=== PATIENT | male | born 1995 | race Caucasian/White ===

== ENCOUNTER 2017-10-13 15:16 | Emergency (ER) | payer OTHER ==
--- NOTE | 2017-10-13 16:20 | RAD ---
HISTORY: Right thumb pain, trauma COMPARISONS: None VIEWS: 3, Frontal, lateral, and oblique views of the first digit of the right hand FINDINGS: BONE DENSITY: Normal. BONES: On one projection, there is a linear lucency along the radial aspect of the base of the distal phalanx of the first digit JOINTS: There is no arthropathy. ALIGNMENT: There is no dislocation. SOFT TISSUES: Unremarkable. OTHER FINDINGS: None. IMPRESSION: QUESTIONABLE NONDISPLACED FRACTURE OF THE BASE OF THE DISTAL PHALANX OF THE FIRST DIGIT. RECOMMEND CORRELATION WITH SITE OF PAIN.
[2017-10-13] MEDS ORDERED: Ibuprofen TAB* 600 MG PO ONE (16:24)
--- NOTE | 2017-10-13 16:25 | ED ---
Upper Extremity Pain - HPI Summary HPI Summary: 22 male presents to ED with complaints of "I think I re-broke my thumb playing basketball". Patient states he broke it a few months ago, back in june 2017, had a cast and states it took a while to heal. Had cast removed in July has since been ok. Was playing basketball yesterday when he re-hurt/jammed his right thumb. Has since been having pain in the same area as when he previously fractured it. Patient denies any obvious swelling or bruising. States pain is worse with movement. No medication. No PMHx. No other complaints or injuries/ tenderness. Is right hand dominant. - History of Current Complaint Chief Complaint: EDExtremityUpper Stated Complaint: THUMB INJURY Time Seen by Provider: 10/13/17 15:29 Hx Obtained From: Patient Mechanism Of Injury: Twisted Onset/Duration: Started Days Ago - yesterday, Traumatic, Still Present, Worse Since Timing: Constant Severity Initially: Mild Severity Currently: Moderate Pain Location: Finger - right thumb Character: Sharp, Aching Aggravating Factor(s): Movement Alleviating Factor(s): Rest Associated Signs & Symptoms: Positive: Negative Related History: Dominant Hand Right - Allergies/Home Medications Allergies/Adverse Reactions: Allergies Allergy/AdvReac Type Severity Reaction Status Date / Time No Known Allergies Allergy Verified 10/13/17 16:21 PMH/Surg Hx/FS Hx/Imm Hx Endocrine/Hematology History: Denies: Hx Anticoagulant Therapy Cardiovascular History: Denies: Hx Hypertension Respiratory History: Denies: Hx Asthma - Surgical History Surgery Procedure, Year, and Place: n/a - Immunization History Immunizations Up to Date: Yes Infectious Disease History: No Infectious Disease History: Denies: Traveled Outside the [place] in Last 30 Days - Family History Known Family History: Positive: None - Social History Alcohol Use: Occasionally Substance Use Type: Reports: None Smoking Status (MU): Never Smoked Tobacco Review of Systems Constitutional: Negative Cardiovascular: Negative Respiratory: Negative Positive: Arthralgia, Myalgia, Decreased ROM - right thumb Skin: Negative Neurological: Negative All Other Systems Reviewed And Are Negative: Yes Physical Exam Triage Information Reviewed: Yes Vital Signs On Initial Exam: Initial Vitals Temp Pulse Resp BP Pulse Ox 97.9 F 59 18 114/80 100 10/13/17 15:18 02/06/18 15:18 10/13/17 15:18 10/13/17 15:18 10/13/17 15:18 Vital Signs Reviewed: Yes Appearance: Positive: Well-Appearing, No Pain Distress, Well-Nourished Skin: Positive: Warm, Skin Color Reflects Adequate Perfusion, Dry. Negative: Cold, Numb, Cyanosis @, Pale, Erythema @ Eyes: Positive: Normal Respiratory/Lung Sounds: Positive: Clear to Auscultation, Breath Sounds Present. Negative: Rales, Rhonchi, Wheezes Cardiovascular: Positive: Normal, RRR, Pulses are Symmetrical in both Upper and Lower Extremities - 2+ radial b/l. Negative: Murmur, Rub Bowel Sounds: Positive: Present Musculoskeletal: Positive: Normal, Limited @ - right thumb with movement due to pain, Pain @ - right thumb at PIP joint and DIP joint, Other - no swelling, edema or obvious deformity noted, no crepitus or step off appreciated. rest of MSK and right hand/fingers exam normal. Negative: Interruption @, Edema Left, Edema Right Neurological: Positive: Normal, Sensory/Motor Intact, Alert, Oriented to Person Place, Time, NV Bundle Intact Distally Diagnostics - Vital Signs Vital Signs Temp Pulse Resp BP Pulse Ox 10/13/17 15:18 97.9 F 59 18 114/80 100 - Laboratory Lab Statement: Any lab studies that have been ordered have been reviewed, and results considered in the medical decision making process. - Radiology right thumb Xray Interpretation: Positive (See Comments) - QUESTIONABLE NONDISPLACED FRACTURE OF THE BASE OF THE DISTAL PHALANX OF THE FIRST DIGIT. RECOMMEND CORRELATION WITH SITE OF PAIN. Radiology Interpretation Completed By: Radiologist Course/Dx - Course Course Of Treatment: given ibuprofen. xray obtained and showed questionable fracture at base of distal phalanx, at point of some pain on palpation on physical exam. patient did have previous fracture in same thumb. will treat as fracture, follow up with ortho. splint and RICE, NSAIDs. patient agrees and understands plan. re-imaging may be necessary. aware of worsening signs and symptoms to watch out for. patient educated that hairline fractures may be difficult to see shortly after injury. - Diagnoses Differential Diagnosis/HQI/PQRI: Positive: Contusion, Fracture (Closed), Strain , Sprain Provider Diagnoses: Fracture of thumb, right, closed Discharge - Discharge Plan Condition: Stable Disposition: HOME Patient Education Materials: Thumb Fracture (ED) Referrals: [facility] [place] PHYSICIAN REFERRAL [Outside] Nova Coelho MD [Medical Doctor] - Additional Instructions: Continue taking ibuprofen for pain and inflammation. Rest, ice and elevate. Wear splint. Avoid use. Follow up with orthopedics for re-evaluation and imaging to determine if acute fracture or artifact/old. Any new or worsening signs or symptoms please seek medical attention.
[2017-10-13 16:46] VITALS: BP 115/84
== END 2017-10-13 16:40 | disposition home or self-care (01) ==
LOC: ED 15:16
DX: S62.501A Fracture of unspecified phalanx of right thumb, initial encounter for closed fracture (principal); W22.8XXA Striking against or struck by other objects, initial encounter; Y93.67 Activity, basketball; Y92.9 Unspecified place or not applicable
CPT/HCPCS: 99282; A9270-GY